=== PATIENT | female | born 1955 | race Caucasian/White ===

== ENCOUNTER → 2016-04-09 | Outpatient (CLI) | payer BC ==
[~2016-04-09] MED LIST: ALBUAER2 INH; BUPR-79 PO; CYM/60 PO; MAGN500T15 PO; NRN300 PO; NXM/40 PO; POTA20TA16 PO; SPR25 PO; SYMIN160 INH; TOPI25TA99 PO; donperidone PO
[2016-04-09 10:17] LABS: BLOOD UREA NITROGEN 13 mg/dl (7-18); BUN/CREATININE RATIO 14.9 (10-20); CALCIUM 8.9 mg/dl (8.5-10.1); CARBON DIOXIDE 30 mmol/L (21-32); CHLORIDE 101 mmol/L (98-107); CREATININE 0.89 mg/dl (0.60-1.20); GLUCOSE 90 mg/dl (70-99); SODIUM 138 mmol/L (136-145)
[2016-04-09 10:22] LABS: FERRITIN 294.4 ng/ml (8.0-388.0); TOTAL IRON BINDING CAPACITY 234 mcg/dl (250-450)
== END | disposition home or self-care (01) ==
LOC: C.LAB 09:15
DX: E61.1 Iron deficiency (principal); I10 Essential (primary) hypertension; E83.42 Hypomagnesemia

== ENCOUNTER → 2016-06-12 | Outpatient (CLI) | payer BC | END | disposition home or self-care (01) | LOC: C.PATHSPEC 16:00 | DX: D23.5 Other benign neoplasm of skin of trunk (principal) ==

== ENCOUNTER → 2016-08-13 | Outpatient (CLI) | payer BC | END | disposition home or self-care (01) | LOC: C.PATHSPEC 10:39 | DX: L81.4 Other melanin hyperpigmentation (principal) ==

== ENCOUNTER → 2017-02-18 | Outpatient (CLI) | payer BC ==
--- NOTE | 2017-02-18 15:03 | MAMMOGRAPHY REPORT ---
UNILATERAL LEFT DIGITAL DIAGNOSTIC MAMMOGRAM TOMOSYNTHESIS AND TARGETED LEFT ULTRASOUND: 02/18/2017 CLINICAL HISTORY: 61-year-old woman with a personal history of right breast cancer status post breast conservation treatment presents for possible architectural distortion and an asymmetry in the left b reast. TECHNIQUE: Spot compression left CC and MLO tomosynthesis views were obtained. Attention was paid t o keep the nipple in profile. COMPARISON: Comparison is made to exams dated: 02/07/2017 mammogram, 01/11/2016 mammogram, 01/04/2015 m ammogram, 10/07/2013 ultrasound, 10/07/2013 mammogram, and 11/19/2012 mammogram - [facility]. BREAST COMPOSITION: The tissue of the left breast is heterogeneously dense, which may obscure small masses. FINDINGS: The addition spot compression views of the left breast demonstrate effacement of the asymme try in the anterior subareolar breast on the images with the nipples in profile. However, there is a persistent area of architectural distortion with associated calcification in the upper outer middle to posterior left breast, 6.7 cm distal to the nipple (spot compression CC tomosynthesis slice 21 and MLO slice 19). This area of distortion measures approximately 3 cm in maximum diameter. Further ev aluation with ultrasound was performed. No other areas of distortion, obvious mass or suspicious malina cifications are seen. Targeted ultrasound was performed in the left breast with particular attention to the upper outer grupo drant. There are several hypoechoic shadowing areas in the left breast. One in particular in the 2: 00 axis, 2 cm from the nipple is identified measuring approximately 6.7 x 4.9 x 3.9 mm. It is unclea r if this definitively correlates with this distortion seen on the tomosynthesis images. Therefore, would prefer to biopsy with mammogram/tomosynthesis guidance to ensure less chance of sampling error or nontargeted biopsy. IMPRESSION: ACR BI-RADS CATEGORY 4: SUSPICIOUS, TARGETED ULTRASOUND ACR BI-RADS CATEGORY 4: SUSPICIO US 1. There is persistent architectural distortion and associated microcalcification in the upper outer middle one third of the left breast for which no definite sonographic correlate was seen. Therefore , further evaluation with a stereotactic tomosynthesis guided left breast biopsy is recommended. 2. An asymmetry in the anterior subareolar left breast also seen on the CC view effaces with the add itional spot compression tomosynthesis views and most likely represented normal overlapping tissue. This is considered benign. These results and recommendations were discussed with the patient at the time of the exam. She tenta tively scheduled a left breast biopsy prior to leaving our department. As long as it is deemed safe by her referring physician, would recommend stopping aspirin 5 days prior to the biopsy. Approximately 10% of breast cancers are not detected with mammography. A negative mammographic report should not delay biopsy if a clinically suggestive mass is present. Rena Drake M.D. ay/:02/18/2017 12:17:52 Plug Overwrap Machine Tender: Mara AUSTIN(Willie)(M), [facility] letter sent: Abnormal 4/5 BI-RADS Code: ACR BI-RADS Category 4: Suspicious Ultrasound BI-RADS: ACR BI-RADS Category 4: Suspici ous
== END | disposition home or self-care (01) ==
LOC: C.MAMM 10:56
DX: N64.89 Other specified disorders of breast (principal); R92.0 Mammographic microcalcification found on diagnostic imaging of breast

== ENCOUNTER → 2017-03-07 | Outpatient (CLI) | payer BC ==
--- NOTE | 2017-03-07 13:14 | Discharge Instructions ---
Discharge Instructions Procedure Procedure Date: Mar 07, 2017. Reason for visit: Left Distortion. Discharge Discharge Date: Mar 07, 2017. Discharge Diagnosis: status post breast biopsy Instructions Activity Recommendations: Additional Limitations (see below) Return to School/Work: no limitations Recommended Home Diet: No Limitations Provider Instructions: ACTIVITY RECOMMENDATIONS: * No lifting, pushing, pulling or exercising the affected side for three days. RETURN TO SCHOOL/WORK: * You may return to work/school after the procedure, but do not perform any strenuous activities for 24 to 48 hours. MEDICATIONS: * Tylenol (two 325 mg) every four to six hours if needed for mild pain (if not allergic to Tylenol). DIET: * Resume previous diet. SPECIAL CARE INSTRUCTIONS: * Keep biopsy site dry for 24 hours. May shower after 24 hours, but do not soak (bathe) incision. * May remove Tegaderm (plastic patch) tomorrow AFTER showering. * Leave the steri-strips on for one week. Allow the steri-strips to fall off by themselves. If not off after one week, you may remove them. You may place a Bandaid crosswise over the strips, if desired. * Apply ice 10 minutes on and 10 minutes off as needed. * Wear a bra at bedtime to sleep more comfortably for 2-3 days. * Your referring physician should have the results after approximately 5 to 7 business days. * Call for unusual bleeding, fever, drainage, etc or if you have any questions call during normal business hours or after hours call Dr Johns, [phone]. FOLLOW UP VISIT: Follow-up with Referring Physician as scheduled. Allergies Coded Allergies: Aspirin (Verified Allergy, Severe, GI UPSET/ TONGUE SWELLS, 11/11/15) Methylphenidate (Verified Allergy, Intermediate, SHORTNESS OF BREATH, ) acts crazy pt states. Metoclopramide (Verified Allergy, Intermediate, 11/11/15) Flavoxate (Verified Allergy, Unknown, 11/11/15) Heparin (Verified Allergy, Unknown, PT. DOES NOT REMEMBER, 11/11/15) Hyoscyamine (Verified Allergy, Unknown, 11/11/15) [place] Recommendations: Call your doctor if: * Temperature above 101 degrees * Pain not relieved by pain medicine ordered * There is increased drainage or redness from any incision * You have any unanswered questions or concerns. Your Doctors Instructions noted above were prepared by provider Johnna Johns. Patient Signature Section: Patient Instructions Signature Page Stephanie Hobbs Patient (or Guardian) Signature/Date: I have read and understand the instructions given to me by my caregivers. Caregiver/RN/Doctor Signature/Date: The above-named patient and/or guardian has received patient instructions on this date. + Original Patient Signature Page (only) stays with chart. Please make copy for patient.
--- NOTE | 2017-03-07 14:35 | MAMMOGRAPHY REPORT ---
UNILATERAL LEFT DIGITAL DIAGNOSTIC MAMMOGRAM TOMOSYNTHESIS: 03/07/2017 CLINICAL HISTORY: Status post left breast stereotactic biopsy. TECHNIQUE: Breast tomosynthesis in addition to standard 2D mammography was performed. Postprocedura l left CC and ML tomosynthesis images including C views were obtained. COMPARISON: Comparison is made to exams dated: 02/18/2017 ultrasound, 02/18/2017 mammogram, 7 mammogram, 01/11/2016 mammogram, 01/04/2015 mammogram, and 10/07/2013 ultrasound - [facility]. BREAST COMPOSITION: The tissue of the left breast is heterogeneously dense, which may obscure small masses. FINDINGS: A new dumbbell-shaped biopsy marker clip is seen at the site of the biopsied architectural distortion and associated calcification in the left upper outer quadrant. No significant postbiopsy hematoma is seen. A biopsy marker clip is seen within the left lower inner quadrant from prior hung gn biopsy. IMPRESSION: POST PROCEDURE IMAGING FOR MARKER PLACEMENT New biopsy marker clip status post biopsy of architectural distortion in the left upper outer quadran t. Pathology results are pending. Approximately 10% of breast cancers are not detected with mammography. A negative mammographic report should not delay biopsy if a clinically suggestive mass is present. Johnna Johns M.D. ah/:03/07/2017 13:31:53 Attending Technologist: Cindy Gonzalez RT(R)(M), [facility] Insurance Licensing Supervisor: Mara Hannon RT(R)(M), [facility] BI-RADS Code: Post Procedure Imaging For Marker Placement
--- NOTE | 2017-03-07 14:35 | MAMMOGRAPHY REPORT ---
STEREOTACTIC GUIDED BIOPSY LEFT BREAST: 03/07/2017 CLINICAL HISTORY: Architectural distortion with an associated calcification in the left upper outer q uadrant. PATIENT CONSENT: The procedure, risks, benefits, and alternatives of stereotactic biopsy with clip pl acement were discussed with the patient, and verbal and written consent was obtained. A timeout was performed immediately prior to the procedure. PROCEDURE DESCRIPTION: With tomosynthesis stereotactic guidance, aseptic technique, and lidocaine as a local anesthetic (1% lidocaine to anesthetize the skin and 1% lidocaine with epinephrine to anesthe tize the deeper tissues), the architectural distortion and associated calcification in the left upper outer quadrant were sampled multiple times with a 9-gauge vacuum-assisted biopsy needle (Kangou ). The path of approach was craniocaudal. The specimen radiograph demonstrates a single coarse calc ification to be present in the samples. A metallic marker clip was placed at the biopsy site. This was confirmed on postprocedure mammograms. Direct pressure was applied at the biopsy site and hemost asis was readily achieved. The patient tolerated the procedure without complication. She was given wound care instructions. COMPARISON: Comparison is made to exams dated: 02/18/2017 ultrasound, 02/18/2017 mammogram, 7 mammogram, 01/11/2016 mammogram, 01/04/2015 mammogram, and 10/07/2013 mammogram - [facility]. IMPRESSION: STEREOTACTIC GUIDED BIOPSY Tomosynthesis stereotactic biopsy of architectural distortion and associated calcification in the lef t upper outer quadrant, with clip placement. The patient will receive pathology results from her ref erring provider. Johnna Johns M.D. ah/:03/07/2017 13:16:31 Attending Technologist: Cindy Gonzalez RT(R)(M), [facility] Podiatry Professor: Mara Hannon RT(R)(M), [facility]
== END | disposition home or self-care (01) ==
LOC: C.MAMM 12:30
DX: R92.8 Other abnormal and inconclusive findings on diagnostic imaging of breast (principal); N64.89 Other specified disorders of breast; N60.92 Unspecified benign mammary dysplasia of left breast

== ENCOUNTER → 2017-08-07 | Outpatient (CLI) | payer OTHER ==
[~2017-08-07] MED LIST changes: +POTA-639 PO; -POTA20TA16 PO
[2017-08-07 09:35] LABS: BASO % 0.4 %; BASO ABS # 0.02 K/uL (0-0.2); EOS % 3.5 %; EOS ABS # 0.17 K/uL (0-0.5); HEMATOCRIT 40.6 % (37-47); HEMOGLOBIN 13.7 g/dL (12.0-16.0); IG# 0.01 K/uL (0.00-0.02); LYMPH % 27.8 %; LYMPH ABS # 1.37 K/uL (1.2-3.4); MEAN CELL VOLUME 84.4 fL (80-100); MEAN CORPUSCULAR HEMOGLOBIN 28.5 pg (25-34); MEAN CORPUSCULAR HGB CONC 33.7 g/dl (32-36); MEAN PLATELET VOLUME 9.5 fL (7.4-10.4); MONO % 9.1 %; MONO ABS # 0.45 K/uL (0.11-0.59); PLATELET COUNT 234 K/uL (130-400); RED CELL DISTRIBUTION WIDTH CV 14.2 % (11.5-14.5); RED CELL DISTRIBUTION WIDTH SD 44.1 fL (36.4-46.3); WHITE BLOOD COUNT 4.92 K/uL (4.8-10.8)
[2017-08-07 09:51] LABS: BLOOD UREA NITROGEN 10 mg/dl (7-18); CALCIUM 9.1 mg/dl (8.5-10.1); CARBON DIOXIDE 24 mmol/L (21-32); CREATININE 0.97 mg/dl (0.60-1.20); GLUCOSE 104 mg/dl (70-99); POTASSIUM 4.2 mmol/L (3.5-5.1); SODIUM 141 mmol/L (136-145)
[2017-08-07 09:54] LABS: CHOLESTEROL 134 mg/dl (0-200); LDL CHOLESTEROL CALCULATED 70 mg/dl
== END | disposition home or self-care (01) ==
LOC: C.LAB1850 08:07
DX: I10 Essential (primary) hypertension (principal); Z13.220 Encounter for screening for lipoid disorders